=== PATIENT | female | born 1960 ===

== ENCOUNTER 2017-06-22 17:29 | Observation (INO) | payer MEDICAID ==
[2017-06-22 17:33] VITALS: BMI 28.3
--- NOTE | 2017-06-22 18:17 | ED PDOC ---
Arrival/HPI - General Chief Complaint: Chest Pain Time Seen by Provider: 06/22/17 17:42 Historian: Patient - History of Present Illness Narrative History of Present Illness (Text): 06/22/17 17:45 A 57 year old female, whose past medical history includes hyperlipidemia, presents to the emergency department complaining of chest pain. Patient reports 4 hours ago, began experiencing mid-sternal chest pain radiating to left arm. Patient denies any shortness of breath, nausea, vomiting, diarrhea, abdominal pain, fever, chills, cough, or any other complaints. PMD: Dr. Lindsey 06/22/17 19:35 Past Medical History - Provider Review Nursing Documentation Reviewed: Yes - Infectious Disease Hx of Infectious Diseases: None - Cardiac Hx Pacemaker: No - Neurological Hx Paralysis: No - Hematological/Oncological Hx Blood Transfusions: No - Musculoskeletal/Rheumatological Hx Musculoskeletal Disorders: No - Psychiatric Hx Emotional Abuse: No Hx Physical Abuse: No Hx Substance Use: No - Anesthesia Hx Anesthesia Reactions: No Hx Malignant Hyperthermia: No - Suicidal Assessment Feels Threatened In Home Enviroment: No Family/Social History - Physician Review Nursing Documentation Reviewed: Yes Family/Social History: CAD/VT (passes away at age less than 50) Smoking Status: Never Smoked Hx Alcohol Use: No Hx Substance Use: No Allergies/Home Meds Allergies/Adverse Reactions: Allergies No Known Allergies Allergy (Verified 06/14/17 13:19) Home Medications: Home Meds Medication Instructions Recorded Confirmed No Known Home Med 06/14/17 06/14/17 Review of Systems - Physician Review All systems were reviewed & negative as marked: Yes - Review of Systems Constitutional: absent: Fevers, Night Sweats Respiratory: absent: SOB, Cough, Sputum, Wheezing Cardiovascular: Chest Pain (radiating to left arm) Gastrointestinal: absent: Abdominal Pain, Constipation, Diarrhea, Nausea, Vomiting Genitourinary Female: absent: Dysuria Neurological: absent: Headache, Dizziness Physical Exam Vital Signs Reviewed: Yes Vital Signs Temp Pulse Resp BP Pulse Ox 06/22/17 17:38 98.1 F 71 18 134/70 100 Temperature: Afebrile Blood Pressure: Normal Pulse: Regular Respiratory Rate: Normal Appearance: Positive for: Well-Appearing, Non-Toxic, Comfortable Pain Distress: None Mental Status: Positive for: Alert and Oriented X 3 - Systems Exam Head: Present: Atraumatic, Normocephalic Pupils: Present: PERRL Extroacular Muscles: Present: EOMI Conjunctiva: Present: Normal Mouth: Present: Moist Mucous Membranes Neck: Present: Normal Range of Motion Respiratory/Chest: Present: Clear to Auscultation, Good Air Exchange. No: Respiratory Distress, Accessory Muscle Use Cardiovascular: Present: Regular Rate and Rhythm, Normal S1, S2. No: Murmurs Abdomen: Present: Normal Bowel Sounds. No: Tenderness, Distention, Peritoneal Signs Back: Present: Normal Inspection Upper Extremity: Present: Normal Inspection. No: Cyanosis, Edema Lower Extremity: Present: Normal Inspection. No: Edema, CALF TENDERNESS Neurological: Present: GCS=15, CN II-XII Intact, Speech Normal Skin: Present: Warm, Dry, Normal Color. No: Rashes Psychiatric: Present: Alert, Oriented x 3, Normal Insight, Normal Concentration Medical Decision Making ED Course and Treatment: 06/22/17 17:50 Impression: 57 year old female with chest pain radiating to left arm. No acute findings on physical examination. Plan: -- Chest X-ray -- Labs -- Aspirin -- Reassess and disposition Progress Notes: 06/22/17 18:32 EKG shows NSR at 73bpm with 1st degree AV block. No acute ST changes. Cxray negative. Trop x 1 negative 06/22/17 18:[address] Lindsey. Due to risk factors of high cholesterol and family history of early cardiac , recommends patient be admitted for observation of chest pain. - Lab Interpretations Lab Results: 06/22/17 17:50 06/22/17 17:50 Lab Results 06/22/17 17:50: Sodium 140, Potassium 3.9, Chloride 102, Carbon Dioxide 27, Anion Gap 15, BUN 18, Creatinine 0.6 L, Est GFR ( Amer) > 60, Est GFR ( Non-Af Amer) > 60, Random Glucose 86, Calcium 9.7, Magnesium 2.1, Total Bilirubin 0.4, AST 36, ALT 54, Alkaline Phosphatase 109, Lactate Dehydrogenase 459, Total Creatine Kinase 87, Troponin I < 0.01, NT-Pro-B Natriuret Pep 44.0, Total Protein 7.6, Albumin 4.2, Globulin 3.3, Albumin/Globulin Ratio 1.3 06/22/17 17:50: PT 10.8, INR 0.95, APTT 32.5 06/22/17 17:50: WBC 5.3, RBC 4.30, Hgb 12.9, Hct 39.0, MCV 90.7, MCH 30.0, MCHC 33.1, RDW 13.3, Plt Count 190, MPV 10.0, Gran % 48.6 L, Lymph % (Auto) 42.0 H, Tripp % (Auto) 7.3 H, Eos % (Auto) 1.9, Baso % (Auto) 0.2, Gran # 2.58, Lymph # ( Auto) 2.2, Tripp # (Auto) 0.4, Eos # (Auto) 0.1, Baso # (Auto) 0.01 - RAD Interpretation Radiology Orders: 06/22/17 17:44 CHEST PORTABLE [RAD] Stat - Medication Orders Current Medication Orders: Discontinued Medications Aspirin (Ecotrin) 324 mg PO STAT STA Stop: 06/22/17 17:45 Last Admin: 06/22/17 18:15 Dose: 324 mg - Scribe Statement The provider has reviewed the documentation as recorded by the Demetra Keller Provider Scribe Attestation: All medical record entries made by the Demetra were at my direction and personally dictated by me. I have reviewed the chart and agree that the record accurately reflects my personal performance of the history, physical exam, medical decision making, and the department course for this patient. I have also personally directed, reviewed, and agree with the discharge instructions and disposition. Disposition/Present on Arrival - Present on Arrival Any Indicators Present on Arrival: No History of DVT/PE: No History of Uncontrolled Diabetes: No Urinary Catheter: No History of Decub. Ulcer: No History Surgical Site Infection Following: None - Disposition Have Diagnosis and Disposition been Completed?: Yes Diagnosis: Chest pain Disposition: HOSPITALIZED Disposition Time: 18:38 Patient Plan: Observation Condition: FAIR Discharge Instructions (ExitCare): Chest Pain (ED) Referrals: Slade Lindsey MD [Primary Care Provider] - Follow up with primary Forms: [email or web address] (Algerian)
[2017-06-22 18:21] LABS: BASO # 0.01 K/mm3 (0.0-2.0); BASO % 0.2 % (0.0-3.0); EOS # 0.1 (0.0-0.7); EOS % 1.9 % (1.5-5.0); GRAN # 2.58 (1.4-6.5); GRAN % 48.6 % (50.0-68.0); HEMOGLOBIN 12.9 g/dL (12.0-16.0); LYMPH # 2.2 (1.2-3.4); MEAN CELL VOLUME 90.7 fl (80.0-105.0); MEAN CORPUSCULAR HGB CONC 33.1 g/dl (31.0-37.0); MONO # 0.4 (0.1-0.6); MONO % 7.3 % (1.0-6.0); RBC 4.3 10^6/uL (3.5-6.1); RED CELL DISTRIBUTION WIDTH 13.3 % (11.5-14.5); WHITE BLOOD COUNT 5.3 10^3/ul (4.5-11.0)
[2017-06-22 18:26] LABS: INR 0.95 (0.93-1.08); PARTIAL THROMBOPLASTIN TIME 32.5 Seconds (25.1-36.5); PROTHROMBIN TIME 10.8 SECONDS (9.4-12.5)
[2017-06-22 18:30] LABS: ALB/GLOB RATIO 1.3 (1.1-1.8); ALBUMIN 4.2 g/dL (3.0-4.8); ALT/SGPT 54 U/L (7-56); AST/SGOT 36 U/L (14-36); BLOOD UREA NITROGEN 18 mg/dL (7-21); CALCIUM 9.7 mg/dL (8.4-10.5); GFR AFRICAN-AMERICAN > 60; GFR NON-AFRICAN AMERICAN > 60; MAGNESIUM 2.1 mg/dL (1.7-2.2)
[2017-06-22 18:41] LABS: TROPONIN I < 0.01 ng/mL
[2017-06-22] MEDS ORDERED: Pneumococcal 23-Valent Vaccine IM ONE (22:29)
[2017-06-22] MEDS ORDERED: Influenza Vaccine 60 mcg/0.5 mL SYR (4YR UP) IM ONE (22:29)
[2017-06-23] MEDS: Pantoprazole 40 mg EC Tab PO SCH (07:41)
--- NOTE | 2017-06-23 08:59 | RAD ---
HISTORY: chest pain COMPARISON: No prior. FINDINGS: LUNGS: No active pulmonary disease. PLEURA: No significant pleural effusion identified, no pneumothorax apparent. CARDIOVASCULAR: Normal. OSSEOUS STRUCTURES: No significant abnormalities. VISUALIZED UPPER ABDOMEN: Normal. OTHER FINDINGS: None. IMPRESSION: No active disease.
--- NOTE | 2017-06-23 18:33 | US ---
HISTORY: abdominal pain COMPARISON: None. TECHNIQUE: Sonographic evaluation of the abdomen. FINDINGS: LIVER: Measures 13.0 cm. Hepatopedal blood flow. Fatty infiltration manifest ultrasonographically as increased all echogenicity of the liver parenchyma. No mass. No intrahepatic bile duct dilatation. GALLBLADDER: Unremarkable. No gallstones. COMMON BILE DUCT: Measures 3.7 mm. No stones. No dilatation. PANCREAS: Unremarkable as visualized. No mass. No ductal dilatation. RIGHT KIDNEY: Measures 3.9 x 9.6cm. Normal echogenicity. No calculus, mass, or hydronephrosis. LEFT KIDNEY: Measures 4.5 x 9.5cm. Normal echogenicity. No calculus, mass, or hydronephrosis. SPLEEN: Normal in size and contour. No mass. AORTA: No aneurysmal dilatation. IVC: Unremarkable. OTHER FINDINGS: None. IMPRESSION: Hepatic steatosis, otherwise unremarkable study
--- NOTE | 2017-06-23 22:58 | CON ---
DATE: CARDIOLOGY CONSULTATION REASON FOR CONSULTATION: Chest pain. HISTORY OF PRESENT ILLNESS: The patient is a 57-year-old [place] Citizen female who has a family history of hyperlipidemia, presents because of chest discomfort that started 4 hours prior to her presentation to the emergency room and resolved subsequently. The patient denies any prior cardiac history. Denies any history of cholelithiasis in the past. SOCIAL HISTORY: Nonsmoker. Nondrinker. MEDICATIONS: Aspirin 81 mg once a day, Protonix 40 mg p.o. once a day. REVIEW OF SYSTEMS: No fever or chills. No vomiting or diarrhea. PHYSICAL EXAMINATION: GENERAL: The patient is a middle-aged female who does not appear to be in any distress. VITAL SIGNS: Blood pressure 114/79, heart rate 65, temperature 97.5, respirations 18. HEENT: Normocephalic. NECK: No JVD. CHEST: Clear. HEART: S1 and S2 regular. ABDOMEN: Soft. EXTREMITIES: No edema. LABORATORY DATA: On admission, hemoglobin, hematocrit, white count and platelet count are within normal limit. PT, PTT, INR are within normal limit. SMA-7 is within normal limit except for creatinine of 0.6. One set of troponin is negative. Today's EKG revealed sinus bradycardia at the rate of 50. Yesterday's EKG on admission revealed sinus rhythm at rate of 73 with prolonged DE interval. ASSESSMENT: 1. Atypical chest pain. Rule out myocardial infarction. 2. Mild sinus bradycardia. RECOMMENDATIONS: Continue current aspirin and Protonix therapy. Obtain TSH level and echocardiogram and one more set of troponin. Bartolo Jorgensen MD
--- NOTE | 2017-06-23 23:35 | CARD ---
APPROVED REPORT EKG Measurement Heart [id number] <Conclusion> Sinus bradycardia Otherwise normal ECG
--- NOTE | 2017-06-23 23:53 | CARD ---
APPROVED REPORT EKG Measurement Heart [id number] <Conclusion> Sinus rhythm with 1st degree AV block Otherwise normal ECG
[2017-06-24 03:09] VITALS: RESP 18; TEMP 97.6
[2017-06-24 06:10] VITALS: BP 111/68; O2SAT 99
[2017-06-24] MEDS: Pantoprazole 40 mg EC Tab PO SCH (09:06)
[2017-06-24 11:17] VITALS: PULSE 68
--- NOTE | 2017-06-24 16:31 | CARD ---
APPROVED REPORT EXAM: Two-dimensional and M-mode echocardiogram with Doppler and color Doppler. INDICATION 2D DIMENSIONS IVSd1.0 (0.7-1.1cm)LVDd4.4 (3.9-5.9cm) PWd1.1 (0.7-1.1cm)LVDs2.9 (2.5-4.0cm) FS (%) 34.3 %LVEF (%)63.6 (>50%) M-Mode DIMENSIONS Left Atrium (MM)3.80 (2.5-4.0cm)Aortic Root2.50 (2.2-3.7cm) Aortic Cusp Exc.1.70 (1.5-2.0cm) Aortic Valve AoV Peak Eesgwrwy757.0cm/Teodora Peak GR.10mmHg Mitral Valve MV E Rbgszjfg29.1cm/sMV A Cvhxgbmz50.3cm/sE/A ratio1.3 TDI Lateral E' Peak V11.40cm/sMedial E' Peak V7.41cm/sE/Lateral E'6.1 E/Medial E'9.5 Tricuspid Valve TR Peak Pzhecuis835cw/sRAP [id number] Peak Gr.6mmHg [id number] LEFT VENTRICLE The left ventricle is normal size. There is normal left ventricular wall thickness. The left ventricular function is normal. The left ventricular ejection fraction is within the normal range. There is normal LV segmental wall motion. The left ventricular diastolic function is normal. RIGHT VENTRICLE The right ventricle is normal size. There is normal right ventricular wall thickness. The right ventricular systolic function is normal. ATRIA The left atrium size is normal. The right atrium size is normal. AORTIC VALVE The aortic valve is normal in structure. No aortic regurgitation is present. There is no aortic valvular stenosis. MITRAL VALVE The mitral valve is normal in structure. There is no mitral valve regurgitation noted. TRICUSPID VALVE The tricuspid valve is normal in structure. There is no tricuspid valve regurgitation noted. PULMONIC VALVE There is trace pulmonic valvular regurgitation. GREAT VESSELS The aortic root is normal in size. The IVC is normal in size and collapses >50% with inspiration. <Conclusion> The left ventricle is normal size. There is normal left ventricular wall thickness. The left ventricular function is normal. The left ventricular ejection fraction is within the normal range. There is normal LV segmental wall motion. The left ventricular diastolic function is normal.
--- NOTE | 2017-06-26 09:13 | HP ---
REASON FOR ADMISSION: Chest pain. HISTORY OF PRESENT ILLNESS: A 57-year-old female with significant past medical history, came in with sharp chest pain radiating to her epigastric area; according to her, had 10 minutes severe enough that the patient could not do much, she was in bus, riding bus and she got off; after 2 minutes, it resolved. She also mentioned she had left shoulder pain; however, that pain has been there before and worse with shoulder movement. The patient also denied any dizziness, denied any sweating or nausea or any palpitations. The patient has no history of cardiac disease. She is not a smoker. No family history. 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 ALLERGIES: NO KNOWN ALLERGIES. SOCIAL HISTORY: No smoking, no drinking. She lives with her son. Her works in [place] and comes and goes and he left back to [place] a few days ago. REVIEW OF SYSTEMS: Noted for only shoulder pain, knee arthritis, back pain; otherwise, negative. Denied any shortness of breath. Denied any history of chest pain. Denied any GI symptoms; no other complaints. PHYSICAL EXAMINATION VITAL SIGNS: On 06/23/2017, temperature is 98.2, heart rate 72, blood pressure 131/79, respirations 18, saturations 97% on room air. HEAD AND NECK: Normal. No JVD. No thyromegaly. CHEST: Clear. Good air entry. CARDIAC: First sound and second sound normal. ABDOMEN: Soft and nontender. She is tender in the epigastric area. EXTREMITIES: No edema. NEUROLOGIC: Normal. LABORATORY DATA: White count 5.3, hemoglobin 12.9, hematocrit 39, platelets 190,000. Chemistry was noted. Sodium 140, potassium 3.9, chloride 102, bicarbonate 27, BUN 18, creatinine 0.6. Liver function test is normal. Troponin x2 was negative. TSH 4.18. PT and PTT is normal. EKG was reported normal, no acute ST-T changes and also, on chest x-ray, was reported no active disease. IMPRESSION AND PLAN 1. A 57-year-old female came in with severe chest pain, stayed for just a few minutes. We will admit the patient to remote telemetry observation. Cardiology consult with Dr. Torrez, Dr. Jorgensen is covering for him. We will get cardiac enzymes and we will follow up with Cardiology recommendations. We will give the patient aspirin. 2. Gastritis, abdominal pain, possible GI in origin. We will get ultrasound of the abdomen. We will give the patient Protonix p.o. 40 mg plus baby aspirin 81 mg. Repeat cardiac enzymes and we will follow up Cardiology recommendations. Thank you. Slade Lindsey MD
--- NOTE | 2017-06-26 19:40 | DS ---
HISTORY OF PRESENT ILLNESS: A 57-year-old female came in for chest pain, seen by Cardiology, Dr. Jorgensen, recommended echocardiography, repeat cardiac enzymes. No recurrent chest pain. Her repeat cardiac enzymes negative. Echo shows good LV function. No regional wall motion abnormality and no valvular disease. Patient is stable. She had ultrasound of her abdomen, which was negative and she will be discharged home. PHYSICAL EXAMINATION: VITAL SIGNS: As follows: Temperature 97.6, heart rate 56, blood pressure 111/68, respirations 18 and saturation 99%. HEAD AND NECK: Normal. No JVD, no thyromegaly. CHEST: Clear. Good air entry. CARDIAC: First and second sounds normal. ABDOMEN: Soft, nontender. EXTREMITIES: No edema. NEUROLOGIC: Normal. DISCHARGE DIAGNOSES: 1. Atypical chest pain, will follow up with Cardiology as outpatient. 2. Gastritis. 3. History of left shoulder osteoarthritis. 4. Acute anxiety. She is . 5. Hepatic steatosis. Patient was advised low carbohydrate diet and exercise. Patient is stable. We will discharge the patient home. Follow up in the office within a week. Continue Protonix 40 mg once a day, baby aspirin 81 mg once a day after meals. Slade Lindsey MD
== END 2017-06-24 11:21 | disposition home or self-care (01) ==
LOC: ED 17:29 → ERH 18:40 → 3RSO 21:49
PROVIDERS: ADMIT Internal Medicine; ATTEND Internal Medicine
DX: R07.89 Other chest pain (principal); K29.70 Gastritis, unspecified, without bleeding; M19.012 Primary osteoarthritis, left shoulder; F41.9 Anxiety disorder, unspecified; K76.0 Fatty (change of) liver, not elsewhere classified; E78.5 Hyperlipidemia, unspecified; Z79.82 Long term (current) use of aspirin; R40.2412 Glasgow coma scale score 13-15, at arrival to emergency department; I44.0 Atrioventricular block, first degree; M17.9 Osteoarthritis of knee, unspecified; R00.1 Bradycardia, unspecified
CPT/HCPCS: 36415; 71045; 76700; 80053; 82550; 83615; 83735; 83880; 84443; 84484; 85025; 85610; 85730; 93005; 93306; 99285; G0378